=== PATIENT | female | born 1955 | race Asian ===

== ENCOUNTER 2023-05-06 14:13 | Outpatient (REF) | payer MEDICARE, MEDICAID, SELFPAY ==
--- NOTE | ~2023-05-06 | MM_ITS ---
EXAMINATION: MM SCREENING DIGITAL BREAST TOMOSYNTHESIS, BILATERAL CLINICAL INFORMATION: Screening. Asymptomatic. COMPARISON: Mammography: This is a baseline study. TECHNIQUE: Digital breast tomosynthesis is performed in both the craniocaudal and mediolateral oblique views along with computer-aided detection (CAD). Synthesized 2D images are generated from the tomosynthesis. FINDINGS: There are scattered areas of fibroglandular density (ACR BI-RADS breast composition Category b). There are no significant masses, abnormal calcifications, or other abnormalities. MM/MM tomosynthesis screening BI IMPRESSION: No mammographic evidence of malignancy. ASSESSMENT: BI-RADS BI-RADS 1 - Negative RECOMMENDATION: Routine annual mammography screening. 1 year F/U This examination should not preclude the clinical evaluation of a suspicious palpable abnormality. This patient's information was entered into a reminder system with a target due date for their next mammogram.
== END 2023-05-06 14:14 | disposition home or self-care (01) ==
LOC: HO.MAMMO 14:13
PROVIDERS: Visit Provider Internal Medicine
DX: Z12.31 Encounter for screening mammogram for malignant neoplasm of breast (principal)
CPT/HCPCS: 77063; 77067

== ENCOUNTER → 2023-05-06 14:30 | Outpatient (BNV) | payer MEDICARE, MEDICAID, SELFPAY | PROVIDERS: Visit Provider Radiology Diagnostic Radiology | DX: Z12.31 Encounter for screening mammogram for malignant neoplasm of breast (principal) | CPT/HCPCS: 77063; 77067 ==

== ENCOUNTER 2023-05-10 14:42 | Outpatient (REF) | payer MEDICARE, MEDICAID, SELFPAY ==
[2023-05-10 15:03] LABS: MANUAL DIFF FLAG NO
[2023-05-10 15:23] LABS: Basophils Percent Auto 0.4 % (0-2); Eosinophils Absolute Auto 0.2 X10*3/uL (0.0-0.4); Eosinophils Percent Auto 2.1 % (0-4); Hematocrit 36.4 % (37.0-47.0); Hemoglobin 11.4 g/dl (12.0-16.0); Imm Gran Abs Auto 0.02 X10*3/uL (0.00-0.03); Imm Gran Pct Auto 0.3 % (0.0-0.4); Lymphocytes Absolute Auto 2.2 X10*3/uL (1.2-4.9); Lymphocytes Percent Auto 31.4 % (20-40); Mean Corpuscular HGB Conc 31.3 g/dl (31.0-35.0); Mean Corpuscular Hemoglobin 25.3 pg (27.0-33.0); Mean Corpuscular Volume 80.7 fL (80.0-98.0); Mean Platelet Volume 11.9 fL (9.4-12.3); Monocytes Absolute Auto 0.4 X10*3/uL (0.1-1.2); Monocytes Percent Auto 6.1 % (2-11); Neutrophils Absolute Auto 4.2 x10*3/uL (2.0-8.3); Neutrophils Percent Auto 59.7 % (45-73); Platelet Count 183 X10*3/uL (160-400); Red Blood Count 4.51 X10*6/uL (4.20-5.50); White Blood Count 7.1 X10*3/uL (4.8-10.8)
[2023-05-10 17:04] LABS: Alanine Aminotransferase 17 U/L (0-31); Albumin Level 3.9 g/dL (3.5-5.0); Alkaline Phosphatase 75 U/L (39-117); Anion Gap 11 (12-20); Aspartate Amino Transferase 18 U/L (5-31); Bilirubin Total 0.3 mg/dL (0.0-1.0); Blood Urea Nitrogen 15 mg/dL (9-16); Calcium 9.2 mg/dL (8.4-10.2); Carbon Dioxide 27 mmol/L (22-29); Chloride 109 mmol/L (96-108); Cholesterol 206 mg/dL (<200); Estimated Glomerular Filt Rate 57; Glucose Random 166 mg/dL (60-115); HDL Cholesterol 66 mg/dL (>40); LDL Cholesterol Calculated 117 mg/dL (<100); Potassium 3.8 mmol/L (3.3-5.1); Sodium 143 mmol/L (135-145); Total Protein 7.2 g/dL (6.5-8.0); Triglycerides 118 mg/dL (<150)
[2023-05-10 17:13] LABS: Thyroid Stimulating Hormone 5.57 uIU/mL (0.32-4.0)
== END 2023-05-10 14:43 | disposition home or self-care (01) ==
LOC: HO.LAB 14:42
PROVIDERS: PCP Internal Medicine; Visit Provider Internal Medicine
DX: E03.8 Other specified hypothyroidism (principal); H61.21 Impacted cerumen, right ear; I10 Essential (primary) hypertension
CPT/HCPCS: 36415; 80053; 80061; 84443; 85025

== ENCOUNTER 2023-11-07 14:00 | Outpatient (RCR) | payer MEDICARE, MEDICAID, SELFPAY ==
--- NOTE | 2023-10-10 15:20 | MHC.PT.EP ---
[facility] [place] Office [place] Office [place] Office [address] Alida Kelley [address] [phone] F: [phone] F: [phone] F: [phone] F: [phone] Physical Therapy Plan of Care Date of Evaluation: 10/10/23 Date of Surgery: Diagnosis: INTERNAL DERANGEMENT OF LEFT KNEE Assessment: 68 YO FEMALE REF TO PT FOR Lt KNEE PAIN x APPROX 1 MONTH, DENIES TRAUMA. 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 FUNCTIONALLY, THE Pt ANGEL Lt LATERAL RETINACULAR PATELLAR TIGHTNESS, DECR HIP FLEXIB, DECR HIP/ LEs STRENGTH, MECHANICAL -> GENU VARUS TENDENCIES, (+) PF SXS, AND FLUCTUATING PAIN LEFT KNEE. FUNCTIONALLY, SHE HAS DECR STEPHANIE TO ADLs REQ KNEE FLEXION, STAIR NAVIGATION, PROLONGED STANDING/ WALKING- SHE NOTES SHE IS ABLE TO PERFORM HER REGULAR ADLs, BUT IS LIMITED WITH HER WALKING, ESPEC PACE. SHE WOULD BENEFIT FROM PT TO ADDRSS THE ABOVE AND MAXIMIZE FUNCR MOB TOLERANCE. Frequency and Duration: The patient will be seen 2 x WK x 4 WKS Short Term Goals: *DECREASE Lt KNEE PAIN TO 2-3/10 *REDUCE Lt LATERAL KNEE TISSUE TENSION/ PATELLAR DRIFT *INCREASE STRENGTH Lt LE/ LUMBOPELVIC STABILIZATION *IMPROVE Lt HIP FLEXIBILITY (IR,ER) Fpc Goals: *INDEP W HEP AND SELF SX MGMT *Pt DEMON FASTER , MORE EFFICIENT GAIT MECHANICS ON LEVEL GROUND AND STAIRS *IMPROVED SQUAT MECHANICS *IMPROVED FUNCTIONAL STRENGTH KENYETTA LEs-> 30 SEC SIT TO STAND AT EVAL: 7 REPS Treatment Plan: Modalities to reduce pain, spasms and effusion. Manual therapy to restore motion and function. Therapeutic exercise to improve strength and flexibility. Neuromuscular re-education for posture and balance. Therapeutic activities to return to functional activities of daily living. Electronically signed by: YASMIN KELLY,PT Please sign and return to therapist. Thank you for your referral.
--- NOTE | 2024-01-20 09:59 | MHC.PT.DC ---
[facility] [place] Office [place] Office [place] Office [address] Kassy Kelley 140 [facility] [phone] F: [phone] F: [phone] F: [phone] F: [phone] Physical Therapy Discharge Report Diagnosis: INTERNAL DERANGEMENT OF LEFT KNEE Date of Surgery: Date of Evaluation: 10/10/23 Date of Discharge: 01/20/24 Treatments to Date: 3 Cancellations to Date: 2 No Shows to Date: 1 Discharge Status: Achieved Goals Improved Function Independent with HEP Discharge Summary: THE Pt IS PROGRESSED WELL IN PT- HER LEs STRENGTH IMPROVED AND SHE WAS ABLE TO ADV W FUNCTIONAL EXERCISES (SQUATS) WITHOUT EXTERNAL SUPPORT. THE Pt IS COMPLIANT AND MOTIVATED W HER HEP, SHE HAS MET HER PT GOALS TO MAX POTENTIAL AND IS READY FOR D/C AT THIS TIME. Electronically signed by: YASMIN KELLY,PT Please sign and return to therapist. Thank you for your referral.
== END 2024-01-20 10:00 | disposition home or self-care (01) ==
LOC: HO.PT 14:00
PROVIDERS: PCP Internal Medicine; Visit Provider Internal Medicine
DX: M23.92 Unspecified internal derangement of left knee (principal)
CPT/HCPCS: 97110; 97140; 97162

== ENCOUNTER 2024-03-26 06:06 | Outpatient (REF) | payer MEDICARE, SELFPAY ==
[2024-03-26 08:07] LABS: Estimated Average Glucose 126 mg/dL
[2024-03-26 08:39] LABS: Alanine Aminotransferase 17 U/L (0-31); Albumin Level 4.1 g/dL (3.5-5.0); Alkaline Phosphatase 71 U/L (39-117); Anion Gap 14 (12-20); Aspartate Amino Transferase 17 U/L (5-31); Bilirubin Total 0.4 mg/dL (0.0-1.0); Blood Urea Nitrogen 17 mg/dL (9-16); Calcium 9.6 mg/dL (8.4-10.2); Carbon Dioxide 26 mmol/L (22-29); Chloride 108 mmol/L (96-108); Cholesterol 219 mg/dL (<200); Estimated Glomerular Filt Rate > 60; Glucose Random 120 mg/dL (60-115); HDL Cholesterol 73 mg/dL (>40); LDL Cholesterol Calculated 134 mg/dL (<100); Potassium 4.3 mmol/L (3.3-5.1); Sodium 144 mmol/L (135-145); Total Protein 7.2 g/dL (6.5-8.0); Triglycerides 61 mg/dL (<150)
[2024-03-26 08:56] LABS: Thyroid Stimulating Hormone 10.55 uIU/mL (0.32-4.0)
== END 2024-03-26 06:07 | disposition home or self-care (01) ==
LOC: HO.LAB 06:06
PROVIDERS: PCP Internal Medicine; Visit Provider Internal Medicine
DX: E03.8 Other specified hypothyroidism (principal); I10 Essential (primary) hypertension; M23.92 Unspecified internal derangement of left knee; Z68.28 Body mass index [BMI] 28.0-28.9, adult; Z13.1 Encounter for screening for diabetes mellitus
CPT/HCPCS: 36415; 80053; 80061; 83036; 84443

== ENCOUNTER 2024-07-03 06:27 | Outpatient (REF) | payer MEDICARE, SELFPAY ==
[2024-07-03 08:31] LABS: Alanine Aminotransferase 21 U/L (0-31); Albumin Level 4.1 g/dL (3.5-5.0); Alkaline Phosphatase 71 U/L (39-117); Anion Gap 12 (12-20); Aspartate Amino Transferase 24 U/L (5-31); Bilirubin Total 0.5 mg/dL (0.0-1.0); Blood Urea Nitrogen 15 mg/dL (9-16); Calcium 9.1 mg/dL (8.4-10.2); Carbon Dioxide 26 mmol/L (22-29); Chloride 110 mmol/L (96-108); Cholesterol 160 mg/dL (<200); Estimated Glomerular Filt Rate 54; Glucose Random 111 mg/dL (60-115); HDL Cholesterol 72 mg/dL (>40); LDL Cholesterol Calculated 79 mg/dL (<100); Sodium 144 mmol/L (135-145); Total Protein 7.3 g/dL (6.5-8.0); Triglycerides 47 mg/dL (<150)
[2024-07-03 08:32] LABS: Thyroid Stimulating Hormone 12.41 uIU/mL (0.32-4.0)
[2024-07-03 08:42] LABS: Vitamin B12 695 pg/mL (200-900)
== END 2024-07-03 06:28 | disposition home or self-care (01) ==
LOC: HO.LAB 06:27
PROVIDERS: PCP Internal Medicine; Visit Provider Internal Medicine
DX: E03.8 Other specified hypothyroidism (principal); E78.00 Pure hypercholesterolemia, unspecified; I10 Essential (primary) hypertension; M23.91 Unspecified internal derangement of right knee; R20.8 Other disturbances of skin sensation
CPT/HCPCS: 36415; 80053; 80061; 82607; 84443

== ENCOUNTER 2024-11-05 12:45 | Outpatient (REF) | payer MEDICARE, MEDICAID, SELFPAY ==
[2024-11-05 14:22] LABS: Estimated Average Glucose 126 mg/dL; Hemoglobin A1C 129.8389 umol/L; Total Hemoglobin (HGBA1C) 3082.4665 umol/L
[2024-11-05 14:50] LABS: Alanine Aminotransferase 23 U/L (0-31); Albumin Level 4.3 g/dL (3.5-5.0); Alkaline Phosphatase 78 U/L (39-117); Anion Gap 11 (12-20); Aspartate Amino Transferase 23 U/L (5-31); Bilirubin Total 0.5 mg/dL (0.0-1.0); Blood Urea Nitrogen 18 mg/dL (9-16); Calcium 9.2 mg/dL (8.4-10.2); Carbon Dioxide 28 mmol/L (22-29); Chloride 109 mmol/L (96-108); Cholesterol 187 mg/dL (<200); Estimated Glomerular Filt Rate > 60; Glucose Random 103 mg/dL (60-115); HDL Cholesterol 81 mg/dL (>40); LDL Cholesterol Calculated 97 mg/dL (<100); Potassium 4.2 mmol/L (3.3-5.1); Sodium 144 mmol/L (135-145); Total Protein 8.1 g/dL (6.5-8.0); Triglycerides 49 mg/dL (<150)
[2024-11-05 15:05] LABS: Thyroid Stimulating Hormone 5.05 uIU/mL (0.32-4.0)
== END 2024-11-05 12:46 | disposition home or self-care (01) ==
LOC: HO.LAB 12:45
PROVIDERS: PCP Internal Medicine; Visit Provider Internal Medicine
DX: Z13.1 Encounter for screening for diabetes mellitus (principal); E03.8 Other specified hypothyroidism; I10 Essential (primary) hypertension; M23.92 Unspecified internal derangement of left knee
CPT/HCPCS: 36415; 80053; 80061; 83036; 84443

== ENCOUNTER 2025-04-02 12:08 | Outpatient (REF) | payer MEDICARE, MEDICAID, SELFPAY ==
[2025-04-02 13:27] LABS: Thyroid Stimulating Hormone 4.08 uIU/mL (0.32-4.0)
== END 2025-04-02 12:09 | disposition home or self-care (01) ==
LOC: HO.LAB 12:08
PROVIDERS: PCP Internal Medicine; Visit Provider Internal Medicine
DX: E03.8 Other specified hypothyroidism (principal); E78.00 Pure hypercholesterolemia, unspecified; I10 Essential (primary) hypertension
CPT/HCPCS: 36415; 84443

== ENCOUNTER 2025-07-05 09:29 | Outpatient (REF) | payer MEDICARE, SELFPAY ==
[2025-07-05 11:13] LABS: Thyroid Stimulating Hormone 4.37 uIU/mL (0.32-4.0)
== END 2025-07-05 09:30 | disposition home or self-care (01) ==
LOC: HO.LAB 09:29
PROVIDERS: PCP Internal Medicine; Visit Provider Internal Medicine
DX: E03.8 Other specified hypothyroidism (principal); I10 Essential (primary) hypertension; M25.511 Pain in right shoulder; E78.00 Pure hypercholesterolemia, unspecified
CPT/HCPCS: 36415; 84443